=== PATIENT | male | born 1945 | race Caucasian/White ===

== ENCOUNTER 2019-08-09 00:13 | Emergency (ER) | payer OTHER ==
--- NOTE | 2019-08-09 00:20 | PDOC ---
History of Present Illness - General Stated Complaint: NOSE BLEED Time Seen by Provider: 08/09/19 00:18 - History of Present Illness Initial Comments: 08/09/19 00:20 74 year old man with history of CAD on asa, beta jaime, statin and intermittent nitroglycerin who presents with Past History - Past Medical History Allergies/Adverse Reactions: Allergies Allergy/AdvReac Type Severity Reaction Status Date / Time diphenhydramine HCl Allergy Intermediate Rash Verified 08/09/19 00:25 [From Kait[facility]ill[facility]] Home Medications: Ambulatory Orders Clopidogrel Bisulfate [Plavix -] 75 mg PO DAILY #0 07/22/12 Nitroglycerin Sublingual [Nitrostat -] 0.4 mg SL PRN PRN #0 07/22/12 Pantoprazole Sodium [Protonix -] 40 mg PO DAILY #0 07/22/12 Ranolazine [Ranexa -] 500 mg PO BID #0 07/22/12 Simvastatin [Zocor -] 20 mg PO HS #0 07/22/12 Glucosamine/Chondr Villarreal A Sod [Osteo Bi-Flex Caplet] 2 tab PO DAILY 06/30/14 Metoprolol Succinate [Toprol XL -] 25 mg PO DAILY 09/10/14 Multivitamins [Multivit ([facility] Formul[facility])] 1 tab PO DAILY 09/10/14 Ferrous Sulfate [Feosol] 325 mg PO DAILY 10/02/14 Oxycodone HCl/Acetaminophen [Percocet 5-325 mg Tablet] 1 - 2 tab PO Q6H #60 tab 10/02/14 Anemia: No Asthma: No Cancer: No Cardiac Disorders: No CVA: No COPD: Yes (cad) CHF: No Dementia: No Diabetes: No GI Disorders: Yes (acid reflux) Disorders: No HTN: No Hypercholesterolemia: No Liver Disease: No Seizures: No Thyroid Disease: No - Surgical History Abdominal Surgery: No Appendectomy: No Cardiac Surgery: No Cholecystectomy: No Lung Surgery: No Neurologic Surgery: No Orthopedic Surgery: No - Psycho Social/Smoking Cessation Hx Smoking History: Never smoked Have you smoked in the past 12 months: No If you are a former smoker, when did you quit?: 8yrs ago Hx Alcohol Use: No Drug/Substance Use Hx: No Substance Use Type: None Hx Substance Use Treatment: No Discharge - Discharge Information Problems reviewed: Yes Clinical Impression/Diagnosis: Nosebleed Condition: Stable Disposition: HOME - Admission No - Follow up/Referral Referrals: David Mcdonald MD [Primary Care Provider] - - Patient Discharge Instructions Patient Printed Discharge Instructions: DI for Nosebleed Additional Instructions: You were seen for nose bleeding. Your nose bleeding stopped and you should stop blowing your nose very strongly. If you have repeat nose bleeding. Use the nose clamp for 20minutes. Please follow up with your ENT doctor within 1 week. Return to the ED if your have unstoppable nose bleeding, difficulty breathing or any other concerning symptoms. - Post Discharge Activity
--- NOTE | 2019-08-09 00:35 | PDOC ---
Attending Attestation - Resident Resident Name: Kasey Teran - ED Attending Attestation I have performed the following: I have examined & evaluated the patient, The case was reviewed & discussed with the resident, I agree w/resident's findings & plan - HPI HPI: 08/09/19 05:59 Pt has had a nosebleed soonce 5:30PM. He states that he gets nosebleeds every couple months, but that they usually resolve and today the blood was poring out , so he stuck a rolled up papertowel in his nose and drive here. - Physicial Exam PE: 08/09/19 06:00 Normal exam. BP normal Heart lungs normal Abd soft NT ND Pt has HEENT normal, except for abraded skin in the left nare medial aspect and lateral aspect. No active bleeding - Medical Decision Making 08/09/19 06:01 Pt understands that he needs to pinch his nose for 15-20 min when it bleeds, no just use tissues to allow the blood to come out. We will defer from placing a rhino rocket nasal tampon, as pt has stable HR and BP and no lightheadedness and he has no active bleeding at this time
[2019-08-09 00:44] VITALS: BP 129/86; PULSE 92; TEMP 98.2; BMI 34.7
== END 2019-08-09 01:37 | disposition home or self-care (01) ==
LOC: JER 00:13
DX: R04.0 Epistaxis (principal); I25.10 Atherosclerotic heart disease of native coronary artery without angina pectoris; K21.9 Gastro-esophageal reflux disease without esophagitis; Z88.8 Allergy status to other drugs, medicaments and biological substances
CPT/HCPCS: 99281-25

== ENCOUNTER 2024-04-08 15:49 | Emergency (ER) | payer OTHER ==
[2024-04-08 15:57] VITALS: BP 164/83; PULSE 103; RESP 18; TEMP 98.1; BMI 33.3
== END 2024-04-08 18:35 | disposition home or self-care (01) ==
LOC: JER 15:49
DX: K59.00 Constipation, unspecified (principal); R14.0 Abdominal distension (gaseous); R11.0 Nausea
CPT/HCPCS: 74018-TC-FY; 99283-25